=== PATIENT | male | born 1945 | race Caucasian/White ===

== ENCOUNTER 2019-01-30 09:34 | Inpatient (IN) | payer MEDICARE, MEDICAID ==
[~2019-01-30] VITALS: Ht 175.3 cm; Wt 89.8 kg
[2019-01-30 11:48] LABS: CHLORIDE 103 mEq/L (98-107)
[2019-01-30 11:49] LABS: BASOPHILS % 0.6 % (0.0-2.0); HEMATOCRIT. 22.8 % (42.0-52.0); HEMOGLOBIN. 7.8 g/dL (14.0-18.0); LYMPHOCYTES % 10.3 % (20.0-50.0); MEAN CORPUSCULAR HEMOGLOBIN 34.1 pg (28.0-32.0); MEAN CORPUSCULAR VOLUME 100.6 fL (80.0-94.0); MEAN PLATELET VOLUME 8.7 fl (7.4-10.4); MONOCYTES % 9.8 % (2.0-8.0); NEUTROPHILS % 74.3 % (40.0-76.0); PLATELET 167 x1000/uL (130-400); RED BLOOD CELL COUNT 2.27 mill/uL (4.7-6.1); RED CELL DISTRIBUTION WIDTH 15.9 % (11.6-14.6)
[2019-01-30 11:56] LABS: INR 1.2; PROTHROMBIN TIME 11.9 sec (9.1-11.1)
[2019-01-30] MEDS ORDERED: VANCOMYCIN 1 G PREMIX 200 ML IV SCH (12:45)
[2019-01-30] MEDS ORDERED: ACETAMINOPHEN 325MG TABLET PO PRN (13:30)
[2019-01-30] MEDS ORDERED: ONDANSETRON HCL 4MG/2ML INJ IV PRN (13:30)
[2019-01-30] MEDS ORDERED: BENA10TA10 PO (15:02)
[2019-01-30] MEDS ORDERED: APIX2.5T PO (15:03)
[2019-01-30] MEDS ORDERED: CEPH500C2 PO (15:05)
[2019-01-30] MEDS ORDERED: LEVO25TA7 PO (15:05)
[2019-01-30] MEDS ORDERED: ASPI-1159 PO (15:06)
[2019-01-30] MEDS ORDERED: AMLO10TA80 PO (15:08)
[2019-01-30] MEDS ORDERED: SITA100T11 PO (15:08)
[2019-01-30] MEDS ORDERED: CARV6.2548 PO (15:08)
[2019-01-30] MEDS ORDERED: ATOR40TA70 PO (15:10)
[2019-01-30] MEDS ORDERED: HYDR100T26 PO (15:10)
[2019-01-30] MEDS ORDERED: FURO40TA5 PO (15:10)
[2019-01-30 16:00] LABS: CLARITY URINE CLOUDY (CLEAR); COLOR URINE YELLOW (YELLOW); KETONES URINE NEGATIVE (NEGATIVE); LEUKOCYTE ESTERASE URINE 3+ (NEGATIVE); NITRITE URINE NEGATIVE (NEGATIVE); OCCULT BLOOD URINE NEGATIVE (NEGATIVE); PH URINE >=9.0 (4.5-8.0); PROTEIN URINE 2+ (NEGATIVE); SPECIFIC GRAVITY URINE 1.012 (1.005-1.030); UROBILINOGEN URINE 0.2 E.U./dL (0.2-1.0)
[2019-01-30] MEDS ORDERED: PIPERACILLIN/TAZ 2.25G PREMIX 50 ML IV NR (17:00)
[2019-01-30 17:01] LABS: TOTAL IRON BINDING CAPACITY 196 ug/dL (250-450)
[2019-01-31] VITALS (7 sets, daily range): BP systolic 97–143; BP diastolic 55–67
[2019-01-31] MEDS ORDERED: VANCOMYCIN 500 MG PREMIX 100 ML IV NR
[2019-01-31] MEDS: HYDROCODONE/ACETAMINOPHEN 5/325MG TABLET PO PRN (01:24)
[2019-01-31] MEDS: PIPERACILLIN/TAZ 2.25G PREMIX 50 ML IV SCH ×3 (02:31→18:00)
[2019-01-31 06:33] LABS: BASOPHILS % 0.7 % (0.0-2.0); EOSINOPHILS % 6.4 % (0.0-5.0); HEMATOCRIT. 22.7 % (42.0-52.0); HEMOGLOBIN. 7.6 g/dL (14.0-18.0); LYMPHOCYTES % 13.3 % (20.0-50.0); MEAN CORPUSCULAR HEMOGLOBIN 33.7 pg (28.0-32.0); MEAN CORPUSCULAR VOLUME 100.3 fL (80.0-94.0); MEAN PLATELET VOLUME 9.3 fl (7.4-10.4); NEUTROPHILS % 69.6 % (40.0-76.0); PLATELET 186 x1000/uL (130-400); RED BLOOD CELL COUNT 2.26 mill/uL (4.7-6.1)
[2019-01-31] MEDS ORDERED: IOHEXOL-350 100 ML BOTTLE ONE (15:16)
[2019-01-31] MEDS ORDERED: DEXTROSE 50% WATER 50ML SYRINGE IV PRN (18:00)
[2019-01-31] MEDS: INSULIN LISPRO 100 UNITS/ML SUBCUT SCH ×2 (18:03→21:00)
[2019-01-31] MEDS: BLOOD SUGAR DIAGNOSTIC STRIP TEST SCH (21:11)
[2019-01-31] MEDS: EPOETIN ALFA 10000UNITS/ML VIAL SUBCUT SCH (21:15)
[2019-02-01] VITALS: BP 130/68
[2019-02-01] MEDS: PIPERACILLIN/TAZ 2.25G PREMIX 50 ML IV SCH (01:22)
[2019-02-01 04:00] VITALS: BP 117/55
[2019-02-01] MEDS: BLOOD SUGAR DIAGNOSTIC STRIP TEST SCH ×4 (06:46→20:39)
[2019-02-01 07:06] LABS: BASOPHILS % 0.6 % (0.0-2.0); HEMATOCRIT. 22.7 % (42.0-52.0); HEMOGLOBIN. 7.8 g/dL (14.0-18.0); LYMPHOCYTES % 10.5 % (20.0-50.0); MEAN CORPUSCULAR HEMOGLOBIN 34.2 pg (28.0-32.0); MEAN CORPUSCULAR VOLUME 99.4 fL (80.0-94.0); MONOCYTES % 10.7 % (2.0-8.0); NEUTROPHILS % 72.2 % (40.0-76.0); PLATELET 194 x1000/uL (130-400); RED BLOOD CELL COUNT 2.29 mill/uL (4.7-6.1); RED CELL DISTRIBUTION WIDTH 15.9 % (11.6-14.6)
[2019-02-01] MEDS: INSULIN LISPRO 100 UNITS/ML SUBCUT SCH ×4 (07:32→20:39)
[2019-02-01 08:00] VITALS: BP 125/61
[2019-02-01 12:00] VITALS: BP 128/54
[2019-02-01 16:00] VITALS: BP 128/60
[2019-02-01 20:00] VITALS: BP 142/63
[2019-02-01] MEDS: HYDROCODONE/ACETAMINOPHEN 5/325MG TABLET PO PRN (22:58)
[2019-02-02 00:36] VITALS: BP 146/71
[2019-02-02] MEDS: HYDROCODONE/ACETAMINOPHEN 5/325MG TABLET PO PRN (06:06)
[2019-02-02] MEDS: BLOOD SUGAR DIAGNOSTIC STRIP TEST SCH ×4 (06:41→21:00)
[2019-02-02 07:48] LABS: BASOPHILS % 0.6 % (0.0-2.0); EOSINOPHILS % 6.7 % (0.0-5.0); HEMATOCRIT. 25.2 % (42.0-52.0); HEMOGLOBIN. 8.4 g/dL (14.0-18.0); MEAN CORPUSCULAR HEMOGLOBIN 33.3 pg (28.0-32.0); MEAN CORPUSCULAR VOLUME 100.6 fL (80.0-94.0); MEAN PLATELET VOLUME 8.5 fl (7.4-10.4); MONOCYTES % 10.8 % (2.0-8.0); NEUTROPHILS % 69.9 % (40.0-76.0); PLATELET 203 x1000/uL (130-400); RED BLOOD CELL COUNT 2.51 mill/uL (4.7-6.1); RED CELL DISTRIBUTION WIDTH 15.8 % (11.6-14.6)
[2019-02-02 08:00] VITALS: BP 148/79
[2019-02-02] MEDS: INSULIN LISPRO 100 UNITS/ML SUBCUT SCH ×4 (08:10→21:00)
[2019-02-02 12:00] VITALS: BP 126/59
[2019-02-02] MEDS: LOSARTAN POTASSIUM 25 MG TABLET PO SCH (14:29)
[2019-02-02] MEDS: AMLODIPINE 2.5MG TABLET PO SCH ×2 (14:29→17:26)
[2019-02-02 16:00] VITALS: BP 121/62
[2019-02-02] MEDS ORDERED: VANCOMYCIN 1250MG in DEXTROSE 5% WATER 250ML IV NR ×2 (16:00→20:00)
[2019-02-02] MEDS: CEFTRIAXONE 1 G PREMIX 50 ML IV SCH (16:42)
[2019-02-02 20:00] VITALS: BP 133/74
[2019-02-02] MEDS: CARVEDILOL 6.25 MG TABLET PO SCH ×2 (20:24→20:36)
[2019-02-02] MEDS: EPOETIN ALFA 10000UNITS/ML VIAL SUBCUT SCH (20:36)
[2019-02-02] MEDS: ATORVASTATIN CALCIUM 40MG TABLET PO SCH (20:37)
[2019-02-03] VITALS: BP 130/72
[2019-02-03 04:00] VITALS: BP 132/61
[2019-02-03 07:22] LABS: BASOPHILS % 0.7 % (0.0-2.0); HEMATOCRIT. 24.6 % (42.0-52.0); HEMOGLOBIN. 8.3 g/dL (14.0-18.0); LYMPHOCYTES % 11.4 % (20.0-50.0); MEAN CORPUSCULAR HEMOGLOBIN 33.7 pg (28.0-32.0); MEAN CORPUSCULAR VOLUME 99.5 fL (80.0-94.0); MEAN PLATELET VOLUME 8.5 fl (7.4-10.4); MONOCYTES % 11.8 % (2.0-8.0); NEUTROPHILS % 68.1 % (40.0-76.0); PLATELET 216 x1000/uL (130-400); RED BLOOD CELL COUNT 2.48 mill/uL (4.7-6.1); RED CELL DISTRIBUTION WIDTH 16.1 % (11.6-14.6)
[2019-02-03 07:31] LABS: CHLORIDE 99 mEq/L (98-107)
[2019-02-03 07:42] LABS: LDL CHOLESTEROL 47 mg/dL (5-100)
[2019-02-03 07:44] LABS: HDL CHOLESTEROL 29 mg/dL (40-59)
[2019-02-03 08:00] VITALS: BP 139/60
[2019-02-03] MEDS: INSULIN LISPRO 100 UNITS/ML SUBCUT SCH ×4 (08:10→21:00)
[2019-02-03] MEDS: BLOOD SUGAR DIAGNOSTIC STRIP TEST SCH ×4 (08:27→21:00)
[2019-02-03] MEDS: AMLODIPINE 2.5MG TABLET PO SCH ×2 (08:38→17:00)
[2019-02-03] MEDS: LOSARTAN POTASSIUM 25 MG TABLET PO SCH (08:39)
[2019-02-03 12:00] VITALS: BP 116/56
[2019-02-03] MEDS ORDERED: VANCOMYCIN HCL 500 MG/VIAL ONE (14:53)
[2019-02-03] MEDS ORDERED: BACITRACIN 15GM TUBE TOP ONE (14:53)
[2019-02-03] MEDS ORDERED: BACITRACIN 50,000 UNITS/VIAL ONE (14:54)
[2019-02-03] MEDS ORDERED: BUPIVACAINE HCL/EPINEPHRINE 0.5%/0.0005 30ML ONE (14:54)
[2019-02-03] MEDS: CEFTRIAXONE 1 G PREMIX 50 ML IV SCH (17:00)
[2019-02-03] MEDS ORDERED: MIDAZOLAM HCL 2 MG/2 ML VIAL ONE (17:15)
[2019-02-03] MEDS ORDERED: PROPOFOL 200MG/20ML VIAL IV ONE (17:15)
[2019-02-03] MEDS ORDERED: FENTANYL CITRATE/PF 50MCG/ML 2ML VIAL ONE ×2 (17:15→17:48)
[2019-02-03] MEDS ORDERED: GLYCOPYRROLATE 0.2 MG/ML 2ML VIAL ONE (17:15)
[2019-02-03] MEDS ORDERED: SUCCINYLCHOLINE CHLORIDE 200MG/10ML IV ONE (17:16)
[2019-02-03] MEDS ORDERED: ONDANSETRON HCL 4MG/2ML INJ ONE (17:16)
[2019-02-03] MEDS ORDERED: LIDOCAINE HCL/PF 1% 10 MG/ML 5ML VIAL ONE (17:16)
[2019-02-03] MEDS ORDERED: METOCLOPRAMIDE HCL 10MG/2ML VIAL ONE (17:16)
[2019-02-03] MEDS ORDERED: BUPIVACAINE HCL 0.5% (5MG/ML) 50ML ONE (17:51)
[2019-02-03] MEDS ORDERED: BUPIVACAINE HCL/PF 0.25% (2.5MG/ML) 10ML ONE (17:53)
[2019-02-03] MEDS ORDERED: ONDANSETRON HCL 4MG/2ML INJ IM NR (18:45)
[2019-02-03] MEDS ORDERED: MEPERIDINE HCL/PF 25MG/ML CPJ IV NR (18:45)
[2019-02-03] MEDS ORDERED: FENTANYL CITRATE/PF 50MCG/ML 2ML VIAL IV PRN (18:45)
[2019-02-03] MEDS ORDERED: HYDROMORPHONE HCL/PF 2MG/ML CPJ IM PRN (18:45)
[2019-02-03 20:00] VITALS: BP 135/69
[2019-02-03] MEDS: CARVEDILOL 6.25 MG TABLET PO SCH (20:40)
[2019-02-03] MEDS: MORPHINE SULFATE 4 MG/ML CPJ (NOT FOR IM USE) IV PRN (20:41)
[2019-02-03] MEDS: ATORVASTATIN CALCIUM 40MG TABLET PO SCH (20:44)
[2019-02-03] MEDS ORDERED: CEFAZOLIN SODIUM 1000MG/VIAL IV SCH (22:00)
[2019-02-04] VITALS: BP 130/70
[2019-02-04 04:00] VITALS: BP 125/76
[2019-02-04] MEDS: HYDROCODONE/ACETAMINOPHEN 5/325MG TABLET PO PRN (06:03)
[2019-02-04] MEDS: BLOOD SUGAR DIAGNOSTIC STRIP TEST SCH ×3 (06:26→17:49)
[2019-02-04 07:31] LABS: BASOPHILS % 0.5 % (0.0-2.0); EOSINOPHILS % 6.4 % (0.0-5.0); HEMATOCRIT. 25.3 % (42.0-52.0); HEMOGLOBIN. 8.6 g/dL (14.0-18.0); LYMPHOCYTES % 9.7 % (20.0-50.0); MEAN CORPUSCULAR HEMOGLOBIN 34.2 pg (28.0-32.0); MEAN CORPUSCULAR VOLUME 100.2 fL (80.0-94.0); MEAN PLATELET VOLUME 8.5 fl (7.4-10.4); MONOCYTES % 10.7 % (2.0-8.0); NEUTROPHILS % 72.7 % (40.0-76.0); PLATELET 225 x1000/uL (130-400); RED BLOOD CELL COUNT 2.53 mill/uL (4.7-6.1); RED CELL DISTRIBUTION WIDTH 16.1 % (11.6-14.6)
[2019-02-04 08:00] VITALS: BP 122/61
[2019-02-04] MEDS ORDERED: CEFAZOLIN 1000MG PREMIX 50 ML IV SCH (08:00)
[2019-02-04] MEDS: INSULIN LISPRO 100 UNITS/ML SUBCUT SCH ×3 (08:10→17:50)
[2019-02-04] MEDS: MORPHINE SULFATE 4 MG/ML CPJ (NOT FOR IM USE) IV PRN (08:21)
[2019-02-04] MEDS: CARVEDILOL 6.25 MG TABLET PO SCH (08:26)
[2019-02-04] MEDS: AMLODIPINE 2.5MG TABLET PO SCH ×2 (08:27→17:00)
[2019-02-04] MEDS: LOSARTAN POTASSIUM 25 MG TABLET PO SCH (08:27)
[2019-02-04 12:00] VITALS: BP 109/62
[2019-02-04 16:00] VITALS: BP 131/64
[2019-02-04] MEDS ORDERED: VANCOMYCIN 1250MG in DEXTROSE 5% WATER 250ML IV SCH (16:00)
[2019-02-04 17:55] VITALS: BP 131/64
== END 2019-02-04 19:18 | disposition home or self-care (01) | DRG 474 ==
LOC: ER 09:48 → 5WST 12:47 → EDBEDREQ 12:49 → EDBEDREQTM 12:49 → ENRESERV 20:38 → 5WST 23:24 → 7WST 01-31 00:29
PROVIDERS: ADMIT Internal Medicine; ATTEND Internal Medicine
PROC: 5A1D70Z Performance of Urinary Filtration, Intermittent, Less than 6 Hours Per Day (ICD-10-PCS; 2019-01-31)
PROC: 5A1D70Z Performance of Urinary Filtration, Intermittent, Less than 6 Hours Per Day (ICD-10-PCS; 2019-02-02)
PROC: 0Y6C0Z1 Detachment at Right Upper Leg, High, Open Approach (ICD-10-PCS; principal; 2019-02-03)
PROC: 5A1D70Z Performance of Urinary Filtration, Intermittent, Less than 6 Hours Per Day (ICD-10-PCS; 2019-02-04)
DX: T87.43 Infection of amputation stump, right lower extremity (principal); N18.6 End stage renal disease; E11.52 Type 2 diabetes mellitus with diabetic peripheral angiopathy with gangrene; E44.0 Moderate protein-calorie malnutrition; J98.11 Atelectasis; N39.0 Urinary tract infection, site not specified; I48.1 Persistent atrial fibrillation; I13.11 Hypertensive heart and chronic kidney disease without heart failure, with stage 5 chronic kidney disease, or end stage renal disease; L03.115 Cellulitis of right lower limb; L97.429 Non-pressure chronic ulcer of left heel and midfoot with unspecified severity; E11.621 Type 2 diabetes mellitus with foot ulcer; L97.529 Non-pressure chronic ulcer of other part of left foot with unspecified severity; D63.8 Anemia in other chronic diseases classified elsewhere; I44.7 Left bundle-branch block, unspecified; E11.22 Type 2 diabetes mellitus with diabetic chronic kidney disease; I48.2 Chronic atrial fibrillation; Z68.29 Body mass index [BMI] 29.0-29.9, adult; Y83.5 Amputation of limb(s) as the cause of abnormal reaction of the patient, or of later complication, without mention of misadventure at the time of the procedure; Z99.2 Dependence on renal dialysis; Z91.19 Patient's noncompliance with other medical treatment and regimen; Z79.01 Long term (current) use of anticoagulants; Z79.899 Other long term (current) drug therapy; Y92.89 Other specified places as the place of occurrence of the external cause
CPT/HCPCS: 36415; 71045; 73590; 75635; 80048; 80061; 80202; 82270; 82728; 82962; 83540; 83550; 83735; 84134; 84439; 84443; 84484; 86850; 86900; 86920; 88307; 88311; 93005; 93306; 93922; 96374; 96375; 99285; A6261; J0171; J0330; J0690; J0696; J0885; J1170; J2250; J2270; J2405; J2543; J2704; J2765; J3010; J3370; J3490; J7040; J7050; J7060; Q9967